=== PATIENT | female | born 1995 | race Caucasian/White ===

== ENCOUNTER → 2018-01-11 | Outpatient (CLI) | payer OTHER ==
[~2018-01-11] MED LIST: CLIN30GE15 TP; ISOT40CA13 PO; SPIR25TA80 PO; TRET20CR37 TP; [UNRECOGNIZED DRUG - CODE] TP
== END ==
LOC: LAB 07:46
PROVIDERS: ATTEND Nurse Practitioner
DX: Z79.899 Other long term (current) drug therapy (principal); L70.9 Acne, unspecified
CPT/HCPCS: 81025

== ENCOUNTER → 2018-02-06 | Outpatient (CLI) | payer OTHER ==
[2018-02-06 08:46] LABS: PLATELET COUNT, AUTOMATED 386 K/uL (150-450)
[2018-02-06 10:21] LABS: LDL CHOLESTEROL 99 mg/dl
== END ==
LOC: LAB 08:15
PROVIDERS: ATTEND Nurse Practitioner
DX: L70.9 Acne, unspecified (principal); Z79.899 Other long term (current) drug therapy
CPT/HCPCS: 36415; 81025; 82040; 82247; 82310; 82374; 82435; 82465; 82565; 82947; 83718; 84075; 84132; 84155; 84295; 84450; 84460; 84478; 84520; 85025

== ENCOUNTER → 2018-03-06 | Outpatient (CLI) | payer OTHER ==
[~2018-03-06] MED LIST changes: +ISOT30CA4 PO
[2018-03-06 08:36] LABS: PLATELET COUNT, AUTOMATED 352 K/uL (150-450)
[2018-03-06 08:52] LABS: LDL CHOLESTEROL 98 mg/dl
== END ==
LOC: LAB 08:11
PROVIDERS: ATTEND Nurse Practitioner
DX: L70.9 Acne, unspecified (principal); Z79.899 Other long term (current) drug therapy
CPT/HCPCS: 36415; 81025; 82040; 82247; 82310; 82374; 82435; 82465; 82565; 82947; 83718; 84075; 84132; 84155; 84295; 84450; 84460; 84478; 84520; 85025

== ENCOUNTER → 2018-04-04 | Outpatient (CLI) | payer OTHER ==
[~2018-04-04] MED LIST changes: +ISOT20CA PO
[2018-04-04 13:12] LABS: PLATELET COUNT, AUTOMATED 390 K/uL (150-450)
[2018-04-04 13:43] LABS: LDL CHOLESTEROL 120 mg/dl
== END ==
LOC: LAB 12:53
PROVIDERS: ATTEND Nurse Practitioner
DX: L70.9 Acne, unspecified (principal); Z79.899 Other long term (current) drug therapy
CPT/HCPCS: 36415; 81025; 82040; 82247; 82310; 82374; 82435; 82465; 82565; 82947; 83718; 84075; 84132; 84155; 84295; 84450; 84460; 84478; 84520; 85025

== ENCOUNTER → 2018-04-25 | Outpatient (CLI) | payer OTHER ==
[2018-04-25 12:56] LABS: PLATELET COUNT, AUTOMATED 459 K/uL (150-450)
[2018-04-25 13:14] LABS: LDL CHOLESTEROL 108 mg/dl
== END ==
LOC: LAB 12:30
PROVIDERS: ATTEND Nurse Practitioner
DX: L70.9 Acne, unspecified (principal); Z79.899 Other long term (current) drug therapy
CPT/HCPCS: 36415; 81025; 82040; 82247; 82310; 82374; 82435; 82465; 82565; 82947; 83718; 84075; 84132; 84155; 84295; 84450; 84460; 84478; 84520; 85025

== ENCOUNTER → 2018-05-23 | Outpatient (CLI) | payer OTHER ==
[~2018-05-23] MED LIST changes: +NORE1CAP PO
[2018-05-23 08:08] LABS: PLATELET COUNT, AUTOMATED 392 K/uL (150-450)
[2018-05-23 08:41] LABS: LDL CHOLESTEROL 112 mg/dl
== END ==
LOC: LAB 07:55
PROVIDERS: ATTEND Nurse Practitioner
DX: L70.9 Acne, unspecified (principal); Z79.899 Other long term (current) drug therapy
CPT/HCPCS: 36415; 81025; 82040; 82247; 82310; 82374; 82435; 82465; 82565; 82947; 83718; 84075; 84132; 84155; 84295; 84450; 84460; 84478; 84520; 85025

== ENCOUNTER → 2018-06-20 | Outpatient (CLI) | payer OTHER ==
[2018-06-20 08:41] LABS: PLATELET COUNT, AUTOMATED 396 K/uL (150-450)
[2018-06-20 09:02] LABS: LDL CHOLESTEROL 103 mg/dl
== END ==
LOC: LAB 08:22
PROVIDERS: ATTEND Nurse Practitioner
DX: L70.9 Acne, unspecified (principal); Z79.899 Other long term (current) drug therapy
CPT/HCPCS: 36415; 81025; 82040; 82247; 82310; 82374; 82435; 82465; 82565; 82947; 83718; 84075; 84132; 84155; 84295; 84450; 84460; 84478; 84520; 85025